=== PATIENT | male | born 1960 | race African-American/Black ===

== ENCOUNTER 2017-05-09 17:40 | Emergency (ER) | payer SELFPAY ==
[2017-05-09 17:52] VITALS: TEMP 98.4
--- NOTE | 2017-05-09 17:58 | EDPHY ---
H & P Stated Complaint: Pain in RUE with numbness eval at [facility] last night HPI/ROS: CHIEF COMPLAINT: Right arm pain. HISTORY OF PRESENT ILLNESS: The patient is a 57-year-old right hand dominant male with a history of anterior cervical discectomy who presents with right anterior shoulder pain that began at 2100 last night. He was seen at [facility] last night for this pain and had x-rays of taken that showed no acute injury. He presents today because the pain has not gone away. The pain is worsened with movement of his arm. He denies recent traumas to the arm. He denies shortness of breath, recent sickness, cough, vomiting, or other complaints. His brother recently due to a post-surgical blood clot. No known family history of VTE. REVIEW OF SYSTEMS: A ten point review of systems was performed and is negative with the exception of the items mentioned in the HPI. Source: Patient Exam Limitations: No limitations - Personal History Tetanus Vaccine Date: 2011 - Medical/Surgical History Hx Asthma: No Hx Chronic Respiratory Disease: No Hx Diabetes: No Hx Cardiac Disease: No Hx Renal Disease: No Hx Cirrhosis: No Hx Alcoholism: No Hx HIV/AIDS: No Hx Splenectomy or Spleen Trauma: No Other PMH: 1. Anterior cervical discectomy. 2. Appendectomy. 3. Tonsillectomy. 4. Lumbar surgery for removal of cyst - Social History Smoking Status: Current some day smoker Additional Social History: 1. Occasional smoker. 2. Rarely drinks alcohol. 3. Works in construction. - Physical Exam Exam: General Appearance: Alert. Vital signs reviewed. Blood pressure 139/84. Neck: No lymphadenopathy, supple. Nontender to palpation of the cervical spine in the midline. Respiratory: Lungs are clear to auscultation; no wheezes, rales, or rhonchi. Cardiovascular: Regular rate and rhythm; no murmur, rub, or gallop. Skin: Warm and dry, no rashes on exposed skin, normal color. No warmth or redness. Back: Nontender to palpation over the thoracolumbar spine. No scapular pain. Extremities: Pain with range of motion of right shoulder. Provocative testing difficult due to pain with motion. Neurological: Alert and oriented. Moving all four extremities easily and equally. Strength is 5 over 5 bilaterally with testing of all major motor groups of upper and lower extremities. Sensation is intact to light touch over all 4 extremities. Deep tendon reflexes are 2+ in the biceps, triceps, and knees bilaterally. Gait normal. Pulses: 2+ radial pulses bilaterally. Psychiatric: Normal affect. Constitutional: Initial Vital Signs Temperature (C) 36.9 C 05/09/17 17:48 Heart Rate 85 05/09/17 17:48 Respiratory Rate 18 05/09/17 17:48 Blood Pressure 139/84 H 05/09/17 17:48 O2 Sat (%) 94 05/09/17 17:48 O2 Delivery Mode Room Air Allergies/Adverse Reactions: codeine [Codeine] Allergy (Severe, Verified 05/09/17 17:45) acetaminophen Allergy (Unknown, Verified 05/09/17 17:45) all fresh fruits and vegetables Allergy (Uncoded 11/22/15 22:25) Home Medications: Medication Instructions Recorded Aciphex 03/15/14 EPINEPHrine [Epipen 0.3 MG (RX)] 0.3 mg IM ONCE #2 syr 03/15/14 Albuterol Inhaler Hfa 07/12/14 EPINEPHRINE [EPIPEN] 0.3 mg IJ ONCE #1 07/12/14 predniSONE 50 mg PO DAILY #3 tablet 07/12/14 EPINEPHrine [Epipen] 0.3 mg IM ONCE #2 syr 06/16/15 Famotidine [Pepcid] 20 mg PO BID #6 tab 06/16/15 predniSONE [prednisone 20mg (RX)] 40 mg PO DAILY 3 Days 06/16/15 EPINEPHRINE [EPIPEN] 0.3 mg IM ONCE #2 syr 11/22/15 predniSONE 60 mg PO DAILY #9 tab 11/22/15 Medical Decision Making ED Course/Re-evaluation: 57-year-old male presents with right shoulder pain since 2099 last night. I feel this pain is musculoskeletal in nature and possibly a rotator cuff injury. He has limited range of motion of the right shoulder. His pain is localized to the anterior shoulder. He has not had trauma. He was referred to an orthopedic surgeon last night at [facility] [place] and I have recommended he follow up next week. He has also been provided our on-call provider. We discussed pain control measures. He is comfortable being discharged. I do not think that he has a deep venous thrombosis involving the right arm. Otherwise brother of a blood clot, this was postoperative. There is no known clotting disorder in the family. Does not have any actual arm pain or swelling.Normal radial pulse. He has a normal neurologic exam of the upper extremities. I do not suspect cervical radiculopathy. There is nothing to suggest infection. Skin is not warm or red. Departure - Departure Disposition: Home, Routine, Self-Care Clinical Impression: Right shoulder pain Qualifiers: Chronicity: acute Qualified Code(s): M25.511 - Pain in right shoulder Condition: Good Instructions: Shoulder Pain (ED) Additional Instructions: Follow up with an orthopedic surgeon next week for reevaluation. You have been provided the telephone number of the on-call orthopedic surgeon. You also have the referral from [place]. As we discussed, I do not think that you have a blood clot in your right arm. I do not recommend an ultrasound at this time. Try using a heat pack on the affected area. Return for any serious worsening of condition. Referrals: Ben Hood MD [Medical Doctor] - As per Instructions Report Scribed for: Leanne Navarro Report Scribed by: Rodrick Kerr Date of Report: 05/09/17 Time of Report: 18:11 Physician Review and Approval Statement: 05/09/17 17:57 Portions of this note were transcribed by the medical sales specialist. I, Dr. Leanne Navarro, personally performed the history, physical exam, and medical decision- making; and confirmed the accuracy of the information in the transcribed note.
[2017-05-09 18:25] VITALS: BP 132/91; PULSE 78; RESP 20; O2SAT 95
== END 2017-05-09 18:31 | disposition home or self-care (01) ==
DX: M25.511 Pain in right shoulder (principal); F17.200 Nicotine dependence, unspecified, uncomplicated

== ENCOUNTER 2017-07-13 17:52 | Emergency (ER) | payer SELFPAY ==
[2017-07-13 18:00] VITALS: RESP 16; TEMP 99
--- NOTE | 2017-07-13 18:09 | CPEKG ---
Heart Rate: 76 RR Interval: 789 P-R Interval: 172 QRSD Interval: 82 QT Interval: 376 QTC Interval: 423 P Kent: 69 QRS Kent: 24 T Wave Kent: 13 EKG Severity - NORMAL ECG - EKG Impression: SINUS RHYTHM Electronically Signed By: Eloy Leiva 13-Jul-2017 18:47:09
[2017-07-13 18:45] LABS: HEMATOCRIT 44.2 % (40.0-51.0)
--- NOTE | 2017-07-13 18:46 | EDPHY ---
H & P Time Seen by Provider: 07/13/17 18:02 HPI/ROS: CHIEF COMPLAINT: Left arm biceps pain HISTORY OF PRESENT ILLNESS: Patient was watching television at home at 5:30 p.m. when he developed relatively rapid onset of pain in his left biceps. Does not radiate, and is much worse with any movement of his arm. Not associated with weakness or numbness in the hand. No neck or back pain. Denies chest pain or shortness of breath. Severity 10/10 now. No injury or trauma. REVIEW OF SYSTEMS: Eye: no change in vision ENT: no sore throat Cardiac: no chest pain or syncope Pulmonary: no cough or SOB Abdomen: no vomiting, diarrhea, abdominal pain Musculoskeletal: No back or neck pain. Skin: no rash Neuro: no headache Constitutional: no fever : no urinary symptoms A comprehensive 10 point review of systems is otherwise negative aside from elements mentioned in the history of present illness. PAST MEDICAL HISTORY: Cervical fusion, appendectomy, tonsillectomy. Social history: No IV drugs. General Appearance: Alert and conversant, cooperative. Eyes: No scleral icterus. ENT, Mouth: Normal mucous membranes. Respiratory: Normal respiratory effort, breath sounds equal, lungs are clear to auscultation. Cardiovascular: Regular rate and rhythm. Gastrointestinal: Abdomen is soft and non tender. Neurological: Alert and oriented x3. Normally conversant. Face symmetric, normal movement and sensation in all extremities. Skin: Warm and dry, no rashes. Specifically does not have zoster or redness or lymphangitis or blisters or any other skin abnormality on his left upper arm over his area of symptoms. Musculoskeletal: Normal left radial pulse and normal motor sensory in the left hand. He has exquisite tenderness to palpation of the biceps and severe pain with passive flexion or supination or pronation of the left arm. He does not have pain in his elbow when I do this. He does not have pain in his shoulder or elbow with movement of either joint. No bony tenderness on the humerus. Psychiatric: Not agitated. Emergency Department course/MDM: Differential including but not limited to muscular, compartment syndrome, rhabdomyolysis, fasciitis, DVT. I think that ACS is unlikely. I think that cervical radiculopathy would be unlikely given his clinical picture. 2044: Results discussed. Patient says he actually feels a lot better now without treatment. I can flex and extend his elbow passively without significant pain. When I pronate or supinate he has pain in his biceps. Discussed with Dr. Nelson who will follow him up in the office. Sling and symptomatic treatment. Declines prescription or OTC pain medications. Smoking Status: Current some day smoker Constitutional: Initial Vital Signs Temperature (C) 37.2 C 07/13/17 17:57 Heart Rate 84 07/13/17 17:57 Respiratory Rate 16 07/13/17 17:57 Blood Pressure 145/91 H 07/13/17 17:57 O2 Sat (%) 95 07/13/17 17:57 O2 Delivery Mode Room Air Allergies/Adverse Reactions: codeine [Codeine] Allergy (Severe, Verified 05/09/17 17:45) acetaminophen Allergy (Unknown, Verified 05/09/17 17:45) all fresh fruits and vegetables Allergy (Uncoded 11/22/15 22:25) Home Medications: Medication Instructions Recorded Aciphex 03/15/14 EPINEPHrine [Epipen 0.3 MG (RX)] 0.3 mg IM ONCE #2 syr 03/15/14 Albuterol Inhaler Hfa 07/12/14 EPINEPHRINE [EPIPEN] 0.3 mg IJ ONCE #1 07/12/14 predniSONE 50 mg PO DAILY #3 tablet 07/12/14 EPINEPHrine [Epipen] 0.3 mg IM ONCE #2 syr 06/16/15 Famotidine [Pepcid] 20 mg PO BID #6 tab 06/16/15 predniSONE [prednisone 20mg (RX)] 40 mg PO DAILY 3 Days tab 06/16/15 EPINEPHRINE [EPIPEN] 0.3 mg IM ONCE #2 syr 11/22/15 predniSONE 60 mg PO DAILY #9 tab 11/22/15 Medical Decision Making - Diagnostics EKG Interpretation: 12-lead EKG interpreted by me; official reading is in trace master. My interpretation is sinus rhythm rate 76 no acute ischemic changes. Patient tells me he had a negative stress test at [place] 2 years ago. Imaging Results: Imaging Impressions Extremity Venous Study 07/13/17 18:36 Impression: Negative. No deep venous thrombosis. Findings discussed with Emergency Department physician, Eloy Leiva, at 1941 hours 07/13/2017. Differential Diagnosis: Differential diagnosis considered including but not limited to cervical radiculopathy, DVT, arterial occlusion, muscle strain or tendon rupture, compartment syndrome, rhabdomyolysis, cellulitis or fasciitis, myositis, septic joint - Data Points Laboratory Results: Laboratory Results 07/13/17 Unknown 07/13/17 18:17 07/13/17 07/13/17 07/13/17 Unknown 18:17 18:17 WBC 7.28 10^3/uL 10^3/uL (3.80-9.50) RBC 4.84 10^6/uL 10^6/uL (4.40-6.38) Hgb 15.1 g/dL g/dL (13.7-17.5) Hct 44.8 % % 44.2 % % (40.0-51.0) (40.0-51.0) MCV 92.6 fL fL (81.5-99.8) MCH 31.2 pg pg (27.9-34.1) MCHC 33.7 g/dL g/dL (32.4-36.7) RDW 13.5 % % (11.5-15.2) Plt Count 218 10^3/uL 10^3/uL (150-400) MPV 10.6 fL fL (8.7-11.7) Neut % (Auto) 42.1 % % (39.3-74.2) Lymph % (Auto) 50.1 % H % (15.0-45.0) Faulk % (Auto) 5.5 % % (4.5-13.0) Eos % (Auto) 1.6 % % (0.6-7.6) Baso % (Auto) 0.4 % % (0.3-1.7) Nucleat RBC Rel Count 0.0 % % (0.0-0.2) Absolute Neuts (auto) 3.06 10^3/uL 10^3/uL (1.70-6.50) Absolute Lymphs (auto) 3.65 10^3/uL H 10^3/uL (1.00-3.00) Absolute Monos (auto) 0.40 10^3/uL 10^3/uL (0.30-0.80) Absolute Eos (auto) 0.12 10^3/uL 10^3/uL (0.03-0.40) Absolute Basos (auto) 0.03 10^3/uL 10^3/uL (0.02-0.10) Absolute Nucleated RBC 0.00 10^3/uL 10^3/uL (0-0.01) Immature Gran % 0.3 % % (0.0-1.1) Immature Gran # 0.02 10^3/uL 10^3/uL (0.00-0.10) ESR 6 MM/HR MM/HR (0-20) Sodium 140 mEq/L mEq/L (134-144) Potassium 4.0 mEq/L mEq/L (3.5-5.2) Chloride 107 mEq/L mEq/L (97-110) Carbon Dioxide 23 mEq/l mEq/l (22-31) Anion Gap 10 mEq/L mEq/L (8-16) BUN 13 mg/dL mg/dL (7-23) Creatinine 1.3 mg/dL mg/dL (0.7-1.3) Estimated GFR 57 Glucose 74 mg/dL mg/dL (70-100) Calcium 9.2 mg/dL mg/dL (8.5-10.4) Creatine Kinase 154 IU/L IU/L (0-224) C-Reactive Protein < 5.0 mg/L mg/L (<10.0) Departure - Departure Disposition: Home, Routine, Self-Care Clinical Impression: Left upper arm pain Condition: Good Instructions: Arm Pain (ED) Additional Instructions: Use ice pack for 20 minutes at a time to the sore area of your left shoulder every couple of hours for the next day. Please return immediately for worsening or severe pain, fever, skin changes, inability to you left hand. Please call Orthopedics for follow-up in 1-2 days unless you are 100% better. Referrals: Jairon Nelson MD [Medical Doctor] - 1-2 days without fail (Call tomorrow for follow-up in 1-2 days if not 100% better.)
[2017-07-13 19:13] LABS: ANION GAP 10 mEq/L (8-16); C-REACTIVE PROTEIN < 5.0 mg/L (<10.0); CALCIUM 9.2 mg/dL (8.5-10.4); CARBON DIOXIDE 23 mEq/l (22-31); CHLORIDE 107 mEq/L (97-110); CREATININE 1.3 mg/dL (0.7-1.3); GLOMERULAR FILTRATION RATE 57; GLUCOSE 74 mg/dL (70-100); SODIUM 140 mEq/L (134-144)
[2017-07-13 19:23] LABS: % IMMATURE GRANULYOCYTES 0.3 % (0.0-1.1); ABSOLUTE IMMATURE GRANULOCYTES 0.02 10^3/uL (0.00-0.10); ADD DIFF? NO; ADD MORPH? NO; ADD SCAN? NO; ATYPICAL LYMPHOCYTE FLAG 20 (0-99); FRAGMENT RBC FLAG 0 (0-99); HEMATOCRIT 44.8 % (40.0-51.0); HEMOGLOBIN 15.1 g/dL (13.7-17.5); LEFT SHIFT FLG 0 (0-99); LIPEMIA HEMOLYSIS FLAG 80 (0-99); MEAN CELL HEMOGLOBIN 31.2 pg (27.9-34.1); MEAN CELL HEMOGLOBIN CONCENTR. 33.7 g/dL (32.4-36.7); MEAN CELL VOLUME 92.6 fL (81.5-99.8); MEAN PLATELET VOLUME 10.6 fL (8.7-11.7); PLATELET CLUMPS FLAG 20 (0-99); PLATELET COUNT 218 10^3/uL (150-400); RED BLOOD CELL COUNT 4.84 10^6/uL (4.40-6.38); RED CELL DISTRIBUTION WIDTH 13.5 % (11.5-15.2)
[2017-07-13 20:15] VITALS: BP 136/87; PULSE 85; O2SAT 98
== END 2017-07-13 20:16 | disposition home or self-care (01) ==
DX: M79.622 Pain in left upper arm (principal); F17.200 Nicotine dependence, unspecified, uncomplicated

== ENCOUNTER 2017-12-11 17:48 | Emergency (ER) | payer SELFPAY ==
[2017-12-11] MEDS ORDERED: TDAP ADULT 0.5 ML INJ (BOOSTRIX) IM ONE (19:35)
[2017-12-11] MEDS ORDERED: SKIN ADHESIVE (DERMABOND) 1 EACH TP ONE (19:48)
--- NOTE | 2017-12-11 19:51 | EDPHY ---
H & P HPI/ROS: Chief complaint: Right middle finger laceration History of present illness: This is a 57-year-old male who presents to the emergency department for a right middle finger laceration. He cut his finger on a razor blade just prior to arrival. Minimal pain. Minimal bleeding. He is still moving the finger well. He is unsure of his last tetanus shot. Smoking Status: Current some day smoker Physical Exam: General: Alert, nontoxic Skin: 0.5 cm laceration to the distal tip of the right middle finger. It does not appear to extend deep. No foreign bodies. It approximates well on its own. Musculoskeletal: He is flexing and extending the finger well with good strength in the DIP, PIP and MCP joint well. Vascular: Capillary refill brisk in the tip of the right middle finger. Neurologic: Sensation intact using light touch in the right middle finger. Constitutional: Initial Vital Signs Temperature (C) 36.8 C 12/11/17 18:02 Heart Rate 60 12/11/17 18:02 Respiratory Rate 16 12/11/17 18:02 Blood Pressure 135/89 H 12/11/17 18:02 O2 Sat (%) 97 12/11/17 18:02 O2 Delivery Mode Room Air Allergies/Adverse Reactions: codeine [Codeine] Allergy (Severe, Verified 12/11/17 18:01) acetaminophen Allergy (Unknown, Verified 12/11/17 18:01) all fresh fruits and vegetables Allergy (Uncoded 11/22/15 22:25) Home Medications: Medication Instructions Recorded NK [No Known Home Meds] 12/11/17 MDM/Departure - MDM Procedures: Procedure: Laceration repair. Verbal consent was obtained from the patient. The 0.5 cm laceration on the right middle finger was irrigated, draped and explored to its base with a gloved finger. There were no deep structures involved. No tendon injury was identified. The wound was repaired with Dermabond. The wound repair was simple. Medications Given: Discontinued Medications Diphtheria/Tetanus/Acell Pertussis (Boostrix) 0.5 ml IM .ONCE ONE Stop: 12/11/17 19:36 Last Admin: 12/11/17 19:53 Dose: 0.5 ml ED Course/Re-evaluation: Patient seen under the supervision of my secondary supervising physician Dr. Rodolfo Berry. Patient presents to the emergency department for a right middle finger laceration. The finger appears neurovascularly intact. He has good musculoskeletal control. The wound is superficial and approximates well. It is cleaned and dermabonded. Placed in a splint. Tetanus is updated. He is to follow up with worker's compensation for recheck. Return precautions are given. - Depart Disposition: Home, Routine, Self-Care Clinical Impression: Finger laceration Qualifiers: Encounter type: initial encounter Finger: middle finger Damage to nail status: without damage Foreign body presence: without foreign body Laterality: right Qualified Code(s): S61.212A - Laceration without foreign body of right middle finger without damage to nail, initial encounter Condition: Good Instructions: Laceration (ED), Skin Adhesive Care (ED) Additional Instructions: Follow-up with worker's compensation for recheck Referrals: NONE *PRIMARY CARE P,. [Primary Care Provider] - As per Instructions
[2017-12-11 20:08] VITALS: BP 140/94; PULSE 70; RESP 18; TEMP 97.9; O2SAT 95
== END 2017-12-11 20:04 | disposition home or self-care (01) ==
PROC: 0HQFXZZ Repair Right Hand Skin, External Approach (ICD-10-PCS; principal; 2017-12-11)
DX: S61.212A Laceration without foreign body of right middle finger without damage to nail, initial encounter (principal); F17.200 Nicotine dependence, unspecified, uncomplicated; Z23 Encounter for immunization; W26.8XXA Contact with other sharp object(s), not elsewhere classified, initial encounter; Y92.009 Unspecified place in unspecified non-institutional (private) residence as the place of occurrence of the external cause

== ENCOUNTER 2018-07-24 11:04 | Emergency (ER) | payer MEDICAID ==
[2018-07-24 11:16] VITALS: BP 146/110
--- NOTE | 2018-07-24 13:01 | EDPHY ---
H & P Time Seen by Provider: 07/24/18 12:12 HPI/ROS: Chief complaint. Finger laceration HPI. 58-year-old male presents emergency department laceration to the left index finger. He was cutting and moving sheet metal. As he through a metal flashing it cut down the side of his left 3rd finger. Denies focal weakness paresthesias. No sense of retained foreign body. No other injuries. ROS 10 systems were reviewed and negative with the exception of the elements mentioned in the history of present illness Past Medical/Surgical History: Cervical diskectomy, appendectomy, lumbar surgery Social History: Single, daily smoker, no alcohol Smoking Status: Current some day smoker Physical Exam: General Appearance: Alert well-developed male mild distress vital signs stable Eyes: Pupils equal and round no pallor or injection. ENT, Mouth: Mucous membranes are moist. Respiratory: There are no retractions, lungs are clear to auscultation. Cardiovascular: Regular rate and rhythm. Gastrointestinal: Abdomen is soft and nontender, no masses, bowel sounds normal. Neurological: Awake and alert, sensory and motor exams grossly normal. Skin: 3 cm laceration down the ulnar aspect of the left 3rd finger. It goes from the base of the nail to just proximal of the PIP joint. Distal motor vascular sensitivity is intact Musculoskeletal: Neck is supple nontender. Extremities symmetrical, full range of motion. Psychiatric: Patient is oriented X 3, there is no agitation. Constitutional: Initial Vital Signs Temperature (C) 36.9 C 07/24/18 11:14 Heart Rate 82 07/24/18 11:14 Respiratory Rate 18 07/24/18 11:14 Blood Pressure 146/110 H 07/24/18 11:14 O2 Sat (%) 96 07/24/18 11:14 O2 Delivery Mode Room Air Allergies/Adverse Reactions: codeine [Codeine] Allergy (Severe, Verified 07/24/18 11:14) acetaminophen Allergy (Unknown, Verified 07/24/18 11:14) all fresh fruits and vegetables Allergy (Uncoded 11/22/15 22:25) Home Medications: Medication Instructions Recorded NK [No Known Home Meds] 07/24/18 Medical Decision Making Procedures: Procedure: Laceration repair. Verbal consent was obtained from the patient. The 3 cm laceration on the left 3rd finger was anesthetized in the usual fashion. The wound was irrigated, draped and explored to its base with a gloved finger. There were no deep structures involved. No tendon injury was identified. The wound was repaired with nine 5-0 prolene sutures. The wound repair was simple. The procedure was performed by myself. ED Course/Re-evaluation: Patient remained stable. He and I discussed treatment plan including criteria for return importance of follow-up further evaluation. He expresses understanding and agreement Differential Diagnosis: I considered tendon laceration, retained foreign body Departure - Departure Disposition: Home, Routine, Self-Care Clinical Impression: Laceration Condition: Good Instructions: Care For Your Stitches (ED) Additional Instructions: Keep cut clean and dry. You may shower and wash her hands with stitches in. Avoid immersion. Return for signs of infection Stitches out 10 days Referrals: NONE *PRIMARY CARE P,. [Primary Care Provider] - As per Instructions
== END 2018-07-24 13:53 | disposition home or self-care (01) ==
PROC: 0HQGXZZ Repair Left Hand Skin, External Approach (ICD-10-PCS; principal; 2018-07-24)
DX: S61.211A Laceration without foreign body of left index finger without damage to nail, initial encounter (principal); W26.9XXA Contact with unspecified sharp object(s), initial encounter; Y93.H9 Activity, other involving exterior property and land maintenance, building and construction